=== PATIENT | male | born 1995 | race Caucasian/White ===

== ENCOUNTER 2022-01-27 13:31 | Outpatient (CLI) | payer OTHER ==
[~2022-01-27 13:31] MED LIST: DIAZEPAM5 MG PO; KETO10TA2 PO; ORPH100T PO
== END 2022-01-27 13:41 | disposition home or self-care (01) ==
LOC: RAD 13:31
PROVIDERS: ATTEND Orthopaedic Surgery
DX: M25.511 Pain in right shoulder (principal)